=== PATIENT | female | born 1965 | race Caucasian/White ===

== ENCOUNTER → 2023-09-07 | Outpatient (CLI) | payer MEDICARE, MEDICAID ==
--- NOTE | 2023-09-07 15:46 | Diagnostic Imaging Report ---
INDICATION: Fracture right iliac wing, follow-up. AP pelvis obtained at 11:37 a.m. and compared with 08/08/2023 Compared to the prior study, there is some bony resorption and early healing of right iliac wing fracture. The alignment is anatomic. There are underlying degenerative changes of the SI joints. No other fractures are seen. Hip joints appear symmetric IMPRESSION: Signs of early healing of right iliac wing fracture with no change in alignment from 08/08/2023. 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 Dictated by: Dictated on workstation # [id number]
== END ==
LOC: ORTHO 11:24
PROVIDERS: ATTEND Orthopaedic Surgery
DX: S32.391D Other fracture of right ilium, subsequent encounter for fracture with routine healing (principal); M47.818 Spondylosis without myelopathy or radiculopathy, sacral and sacrococcygeal region; X58.XXXD Exposure to other specified factors, subsequent encounter
CPT/HCPCS: 72170; 99213

== ENCOUNTER → 2023-10-19 | Outpatient (CLI) | payer MEDICARE, MEDICAID ==
--- NOTE | 2023-10-19 17:59 | Diagnostic Imaging Report ---
HISTORY: Follow-up right ilium fracture COMPARISON: 09/07/2023 TECHNIQUE: Frontal view of the pelvis FINDINGS: There is a healing fracture of the anterior right ilium in stable alignment. No other fractures are seen and alignment otherwise appears normal. Joint spaces are preserved. IMPRESSION: 1. Healing fracture of the anterior right ilium in stable alignment. Dictated by: Dictated on workstation # [id number]
== END ==
LOC: ORTHO 09:51
PROVIDERS: ATTEND Orthopaedic Surgery
DX: S32.301A Unspecified fracture of right ilium, initial encounter for closed fracture (principal); X58.XXXA Exposure to other specified factors, initial encounter
CPT/HCPCS: 72170; 99213